=== PATIENT | female | born 1980 | race African-American/Black ===

== ENCOUNTER 2021-02-27 19:31 | Emergency (ER) | payer OTHER ==
[~2021-02-27 19:31] MED LIST: Iopamidol-370 76% 500 ML 1 ML ONE
[2021-02-27] MEDS ORDERED: Fentanyl 100 MCG/2 ML VIAL ONE (19:37)
[2021-02-27] MEDS ORDERED: Morphine 4 MG/ML VIAL ONE (19:45)
[2021-02-27] MEDS ORDERED: Ondansetron PF 4 MG/2 ML Vial ONE (19:45)
[2021-02-27 20:14] LABS: BHCG - Serum Negative (NEGATIVE); Pregs Control Background? CLEAR/WHITE (CLR/WHITE); Pregs Control Bar Appear? YES (CONTROL BAR)
[2021-02-27 20:19] LABS: ALT (SGPT) 20 U/L (8-55); AST (SGOT) 18 U/L (5-34); Albumin 3.6 g/dL (3.5-5.0); Alkaline Phosphatase 44 U/L (40-110); Anion Gap 14 mmol/L (10-20); BUN (Urea Nitrogen) 15 mg/dL (7.0-18.7); Bilirubin, Total 0.5 mg/dL (0.2-1.2); Calc. Creatinine Clearance 0 mL/min (70-130); Calcium 8.4 mg/dL (7.8-10.44); Carbon Dioxide 20 mmol/L (22-29); Chloride 109 mmol/L (98-107); Globulin 3.5 g/dL (2.4-3.5); Glucose 131 mg/dL (70-105); Potassium 3.7 mmol/L (3.5-5.1); Protein, Total 7.1 g/dL (6.0-8.3); Sodium 139 mmol/L (136-145)
[2021-02-27] MEDS ORDERED: Ketamine 50 MG/ML (10ML VIAL) ONE (20:22)
[2021-02-27] MEDS ORDERED: Lorazepam 2 MG/ML VIAL ONE (20:34)
[2021-02-27 20:51] LABS: #Eosinphils 0.1 thou/uL (0.0-0.7); #Lymphocytes 2.4 thou/uL (1.20-3.40); #Monocytes 0.5 thou/uL (0.11-0.59); %Basophils 0.8 % (0.0-1.0); %Eosinophils 1.7 % (0.0-10.0); %Lymphocytes 39.5 % (21.0-51.0); %Monocytes 8.5 % (0.0-10.0); %Neutrophils 49.6 % (42.0-75.0); Hemoglobin 12.1 g/dL (12.0-16.0); Mean Corpuscular HGB CONC 34.1 g/dL (32.0-36.0); Mean Corpuscular Hemoglobin 34.3 pg (27.0-31.0); Platelet Clumps MARKED; RBC Distribution Width 11.8 % (11.5-14.5); RBC Morphology Normal; Red Blood Cell (RBC) Count 3.54 mill/uL (4.20-5.40); White Blood Cell (WBC) Count 6.1 thou/uL (4.8-10.8)
== END 2021-02-27 22:31 | disposition home or self-care (01) ==
LOC: ERS 19:31
DX: S43.004A Unspecified dislocation of right shoulder joint, initial encounter (principal); J45.909 Unspecified asthma, uncomplicated; V86.99XA Unspecified occupant of other special all-terrain or other off-road motor vehicle injured in nontraffic accident, initial encounter
CPT/HCPCS: 23650; 36415; 70450; 71045; 71260; 72125; 74177; 80053; 83605; 84703; 85025; 86850; 86900; 86901; 96374; 96375; G0390; J2060; J2270; J2405; J3010; Q9967